=== PATIENT | female | born 1965 | race Caucasian/White ===

== ENCOUNTER → 2022-08-14 08:10 | Outpatient (BNVA) | payer OTHER, SELFPAY | PROVIDERS: PCP Physician Assistant; Visit Provider Physician Assistant Surgical ==

== ENCOUNTER → 2022-09-12 08:49 | Outpatient (BNVA) | payer OTHER, SELFPAY | PROVIDERS: PCP Physician Assistant; Visit Provider Physician Assistant Surgical ==

== ENCOUNTER 2022-09-16 09:49 | Outpatient (REF) | payer OTHER, SELFPAY ==
--- NOTE | ~2022-09-16 | XR_ITS ---
EXAMINATION: XR CHEST CLINICAL INFORMATION: Reason for Exam E66.01 - Morbid (severe) obesity due to excess calories COMPARISON: None TECHNIQUE: 2 views of the chest FINDINGS: Lines and tubes: Partially imaged anterior cervical fusion hardware. Clear lungs. No pleural effusion. No pneumothorax. Normal cardiomediastinal silhouette. XR/XR chest 2V IMPRESSION: * Clear lungs.
--- NOTE | 2022-09-16 10:04 | ECG_ITS ---
Test Reason : MORBID OBESITY Blood Pressure : / mmHG Vent. Rate : 067 BPM Atrial Rate : 067 BPM P-R Int : 160 ms QRS Dur : 084 ms QT Int : 394 ms P-R-T Axes : 019 048 039 degrees QTc Int : 416 ms Normal sinus rhythm Low voltage QRS Borderline ECG No previous ECGs available Referred By: Negin Shelton Electronically Signed By:SHANNAN ALMARAZ
[2022-09-16 10:22] LABS: MANUAL DIFF FLAG NO
[2022-09-16 10:27] LABS: Hematocrit 45.8 % (37.0-47.0); Hemoglobin 15.1 g/dl (12.0-16.0); Imm Gran Abs Auto 0.01 X10*3/uL (0.00-0.03); Imm Gran Pct Auto 0.2 % (0.0-0.4); Lymphocytes Absolute Auto 1.1 X10*3/uL (1.2-4.9); Lymphocytes Percent Auto 25.9 % (20-40); Mean Corpuscular Hemoglobin 32.3 pg (27.0-33.0); Mean Corpuscular Volume 97.9 fL (80.0-98.0); Mean Platelet Volume 10.3 fL (9.4-12.3); Monocytes Absolute Auto 0.3 X10*3/uL (0.1-1.2); Monocytes Percent Auto 7.9 % (2-11); Neutrophils Absolute Auto 2.6 x10*3/uL (2.0-8.3); Platelet Count 196 X10*3/uL (160-400); Red Blood Count 4.68 X10*6/uL (4.20-5.50); Red Cell Distribution Width 12.9 % (11.0-16.0); White Blood Count 4.1 X10*3/uL (4.8-10.8)
[2022-09-16 10:56] LABS: Estimated Average Glucose 94 mg/dL; Hemoglobin A1c % 4.9 %
[2022-09-16 11:16] LABS: Alanine Aminotransferase 50 U/L (0-31); Alkaline Phosphatase 89 U/L (39-117); Anion Gap 12 (12-20); Aspartate Amino Transferase 29 U/L (5-31); Bilirubin Total 1.1 mg/dL (0.0-1.0); Blood Urea Nitrogen 17 mg/dL (9-16); C Reactive Protein 0.56 mg/dL (< or = 0.50); Calcium 9.5 mg/dL (8.4-10.2); Carbon Dioxide 27 mmol/L (22-29); Chloride 106 mmol/L (96-108); Cholesterol 190 mg/dL; Estimated Glomerular Filt Rate > 60; Glucose Random 97 mg/dL (60-115); HDL Cholesterol 48 mg/dL; Iron 99 mcg/dL (30-160); LDL Cholesterol Calculated 121 mg/dl; Percent Iron Saturation 34 % (15-50); Potassium 4.1 mmol/L (3.3-5.1); Sodium 141 mmol/L (135-145); Total Iron Binding Capacity 291 mcg/dL (228-428); Total Protein 6.5 g/dL (6.5-8.0); Triglycerides 107 mg/dL; Unsaturated Iron Binding 192 ug/dL
[2022-09-16 11:35] LABS: Ferritin 223 ng/mL (10-250); Insulin 14 uU/mL (2-29); TSH reflex Free T4 2.24 uIU/mL (0.32-4.0)
[2022-09-16 11:45] LABS: Folate 13.4 ng/mL (> or = 4.0); Vitamin B12 631 pg/mL (200-900)
[2022-09-18 13:19] LABS: Calcium (PTHI) 9.3 mg/dL (8.6-10.4); PTHI 113 pg/mL (16-77)
[2022-09-20 04:54] LABS: Zinc 75 mcg/dL (60-130)
[2022-09-22 06:23] LABS: Vitamin B1 <6 nmol/L (8-30)
[2022-09-24 01:03] LABS: Vitamin A 41 mcg/dL (38-98)
== END 2022-09-16 09:50 | disposition home or self-care (01) ==
LOC: HO.LAB 09:49
PROVIDERS: PCP Physician Assistant; Visit Provider Physician Assistant Surgical
DX: E66.01 Morbid (severe) obesity due to excess calories (principal)
CPT/HCPCS: 36415; 71046; 80053; 80061; 82306; 82607; 82728; 82746; 83036; 83525; 83540; 83970; 84425; 84443; 84590; 84630; 85025; 86140; 93005

== ENCOUNTER 2022-10-07 09:19 | Outpatient (AMB) | payer OTHER, SELFPAY ==
[2022-10-07 09:22] VITALS: BP 134/67; PULSE 69; TEMP 36.1; O2SAT 96; BMI 43.2
--- NOTE | 2022-10-07 09:22 | MHC.OFFVISWM ---
Intake VS Expanded 10/07/22 09:22 Height 5 ft 5 in Weight 259 lb 9.6 oz BMI 43.2 BP 134/67 Blood Pressure Location Rt brachial Blood Pressure Position Sitting Pulse 69 Pulse Source Pulse Oximeter Temp 97.0 F Temperature Source Temporal Artery Scan Pulse Oximetry 96 Oxygen Delivery Method Room Air Body Fat 122.8 Body Fat Percentage 47.3 Free Fat Mass 136.6 Muscle Mass 1,298 Visceral Mass 15.0 Water Mass 97.2 BMR 1,932 Intake Visit Reasons: (OV) F/U SWL + H.Pylori Allergies acetaminophen [From Percocet] Allergy (Mild, Verified 10/07/22 10:15) NAUSEA AND VOMITING codeine Allergy (Mild, Verified 10/07/22 10:15) MIGRAINES morphine Allergy (Mild, Verified 10/07/22 10:15) Itching oxycodone [From Percocet] Allergy (Mild, Verified 10/07/22 10:15) NAUSEA AND VOMITING Penicillins Allergy (Mild, Verified 10/07/22 10:15) Hives NITRILE GLOVES Allergy (Mild, Uncoded 08/14/22 08:33) Hives Medication List - Last Reconciled 10/07/22 by MARNIE Spencer cholecalciferol (vitamin D3) 25 mcg PO DAILY diclofenac sodium 75 mg PO BID PRN fexofenadine 180 mg PO DAILY gabapentin 100 mg PO BEDTIME hydroxychloroquine 200 mg PO BID lidocaine 5% 0 patches topical omeprazole 20 mg PO DAILY ropinirole 0.5 mg PO BEDTIME solifenacin 5 mg PO Q8H thiamine HCl (vitamin B1) 100 mg PO DAILY triamcinolone acetonide 2 sprays intranasal DAILY HPI HPI Comments History of Present Illness Details The patient is a pleasant 56 year old female who returns to the clinic for pre-operative surgical weight loss management.? They were last seen in the office on 09/12/2022, recorded weight at that time was 270.2 pounds, with a BMI of 44.9.? Today's weight is 259.6 pounds and BMI is 43.2.? There has been a weight loss of 10.2 pounds since initiating the surgical weight loss program on 09/12/2022 with a total body weight loss of 3.92 %. Pre op work up completed as follows: SWL classes:? 08/04 appts: 7/25 RD appts: 10/14 Labs: low vit D/B1, high PTH H. pylori: today CXR: 09/16 clear lungs EK/20 Normal sinus rhythm; Low voltage QRS ABD U/S: 12/05 UGI: 12/05 The patient reports that her back is hurting her, often does when she starts to lose weight. Is no longer working, was laid off. Usually does not get both shakes- does not start first shakes until 11am-12pm. Current meal plan includes: [employer] premade shake (30g) from 9-11am and 12-2pm. HALF [employer] protein bar at 3pm-4pm and other half at 8pm-9pm. Dinner at 6pm- 6 forks of protein and 6 forks of salad/vegetables. Current exercise plan includes: stationary bike or videos limited due to pain, 6000 steps some days. [facility] Surgical History History of back surgery Hx of carpal tunnel repair Hx of foot surgery Hx of foot surgery Hx of hysterectomy Hx of total knee replacement Hx of unilateral oophorectomy Family History Mother No problems noted. Father Heart attack Brother No problems noted. Son No problems noted. Social History Alcohol intake: current Alcohol intake frequency: holidays/special occasions only Patient Tobacco Use Status: Never used Tobacco Physical Exam Vital Signs: Last Vital Signs Temp 97.0 F 10/07/22 09:22 Pulse 69 10/07/22 09:22 BP 134/67 10/07/22 09:22 Pulse Ox 96 10/07/22 09:22 Oxygen Delivery Method Room Air 10/07/22 09:22 BMI result Body Mass Index 43.2 Assessment & Plan Assessment & Plan (1) Morbid obesity: Code(s): E66.01 - Morbid (severe) obesity due to excess calories (2) Arthritis: Code(s): M19.90 - Unspecified osteoarthritis, unspecified site (3) GERD (gastroesophageal reflux disease): Code(s): K21.9 - Gastro-esophageal reflux disease without esophagitis Plan Pt is out of [employer] protein powder and now wants to use Atkins. She is unsure of the protein content of the powder. When she gets home will text me a photo and I will create new meal plan based on that. Next visit with Dr. Truong in 2 weeks, then followup with me 2 weeks subsequent. Patient is morbidly obese and is not considered stable at this time. I spent a total of 30 minutes reviewing/updating records, examining the patient and counseling the patient on weight management as detailed above. Coding Level of Care Code Est Pt Level 4 (12645) Diagnoses Morbid obesity E66.01 Arthritis M19.90 GERD (gastroesophageal reflux disease) K21.9
== END 2022-10-07 11:58 | disposition home or self-care (01) ==
PROVIDERS: PCP Physician Assistant; Visit Provider Physician Assistant Surgical
DX: E66.01 Morbid (severe) obesity due to excess calories (principal); Z68.41 Body mass index [BMI] 40.0-44.9, adult; M19.90 Unspecified osteoarthritis, unspecified site; K21.9 Gastro-esophageal reflux disease without esophagitis
CPT/HCPCS: 99214

== ENCOUNTER 2022-10-07 09:19 | Outpatient (REF) | payer OTHER, SELFPAY ==
[2022-10-12 12:42] LABS: H Pylori Breath Test Negative (Negative)
== END 2022-10-07 09:20 | disposition home or self-care (01) ==
LOC: HO.LNP 09:19
PROVIDERS: PCP Physician Assistant; Visit Provider Physician Assistant Surgical
DX: E66.01 Morbid (severe) obesity due to excess calories (principal); M19.90 Unspecified osteoarthritis, unspecified site; K21.9 Gastro-esophageal reflux disease without esophagitis
CPT/HCPCS: 83013; 99211

== ENCOUNTER 2022-10-14 09:30 | Outpatient (AMB) | payer OTHER, SELFPAY ==
--- NOTE | 2022-10-14 10:22 | A.OFFVIS_ITS ---
Intake Intake Visit Reasons: (OV) Initial Nutrition SWL Allergies acetaminophen [From Percocet] Allergy (Mild, Verified 10/07/22 10:15) NAUSEA AND VOMITING codeine Allergy (Mild, Verified 10/07/22 10:15) MIGRAINES morphine Allergy (Mild, Verified 10/07/22 10:15) Itching oxycodone [From Percocet] Allergy (Mild, Verified 10/07/22 10:15) NAUSEA AND VOMITING Penicillins Allergy (Mild, Verified 10/07/22 10:15) Hives NITRILE GLOVES Allergy (Mild, Uncoded 08/14/22 08:33) Hives HPI Nutrition Presentation Reason for consult elevated BMI Diet Assmnt Details Patient shares she is struggling with consistency with her nutrition plan. She shares her partner and she dine out or get takeout food , Thursday, Thursday. She feels that this is something she is not willing to change. night gets sushi, she feels that she makes a better choice than she normally would (now gets salad with imitation crab, dressing). The other night she had [place] food (3 spring rolls, fried rice, Teriyaki skewer). Likes to go to an [employer] restaurant in [place]. She reports hse sometimes skips shakes/bars . does have to work on consistency still Previous weight loss methods attempted Tried keto, but didn't give up sugar Patient shares she try to pursue bariatric surgery pre COVID at a clinic in [place]. Dietary counseling reduction Who buys your food self and spouse Who prepares/cooks your food self and spouse Meal frequency regular: breakfast, lunch and dinner Lifestyle Food frequency Grains/pasta/breads/cereal (carbs): daily and Meats/poultry/fish (protein): daily Diagnosis Nutrition problem #1 overweight/obesity As related to (etiology) #1 excess energy intake and physical inactivity As evidenced by (sign/symptom) #1 high BMI Monitoring/Goals Nutrition problem monitoring total energy intake, level of knowledge/skill, total PRO intake, total CHO intake and weight Learning/Education Readiness to learn fair Stages of change preparation Educational materials provided Yes Most Recent Diabetes Results: Cholesterol 190 mg/dL 09/16/22 HDL Cholesterol 48 mg/dL 09/16/22 Triglycerides 107 mg/dL 09/16/22 Creatinine 0.75 mg/dL (0.5-1.4) 09/16/22 Blood Urea Nitrogen 17 mg/dL (9-16) H 09/16/22 Sodium 141 mmol/L (135-145) 09/16/22 Potassium 4.1 mmol/L (3.3-5.1) 09/16/22 Chloride 106 mmol/L (96-108) 09/16/22 Carbon Dioxide 27 mmol/L (22-29) 09/16/22 Calcium 9.5 mg/dL (8.4-10.2) 09/16/22 AST 29 U/L (5-31) 09/16/22 ALT 50 U/L (0-31) H 09/16/22 Total Protein 6.5 g/dL (6.5-8.0) 09/16/22 Albumin 4.0 g/dL (3.5-5.0) 09/16/22 PFSH Surgical History History of back surgery Hx of carpal tunnel repair Hx of foot surgery Hx of foot surgery Hx of hysterectomy Hx of total knee replacement Hx of unilateral oophorectomy Family History Mother No problems noted. Father Heart attack Brother No problems noted. Son No problems noted. Social History Alcohol intake: current Alcohol intake frequency: holidays/special occasions only Patient Tobacco Use Status: Never used Tobacco Assessment & Plan Assessment & Plan (1) Morbid obesity: Code(s): E66.01 - Morbid (severe) obesity due to excess calories Patient Instructions: Discussed the habit of restaurant foods/take out etc but pt feels that this is something she doesn't want to change. We reviewed basic lifestyle recommendations for post bariatric surgery. Outlined some areas for improvement but pt notes she has already made great progress. congratulated pt on her success so far but provided goals for next appointment which included no skipping meals, making better food choices when eating out, and consistency overall. she will have a discussion with Dr. Truong about her desired timeline for surgery. pt will need another nutrition appointment Coding Level of Care Code Nutr Indiv Intake (79115) Diagnoses Morbid obesity E66.01 Time Spent (min) 30
== END 2022-10-14 11:12 | disposition home or self-care (01) ==
PROVIDERS: PCP Physician Assistant; Visit Provider Dietitian, Registered
DX: E66.01 Morbid (severe) obesity due to excess calories (principal)

== ENCOUNTER → 2022-10-14 09:30 | Outpatient (BNVA) | payer OTHER, SELFPAY | PROVIDERS: PCP Physician Assistant; Visit Provider Dietitian, Registered | DX: E66.01 Morbid (severe) obesity due to excess calories (principal); Z71.3 Dietary counseling and surveillance | CPT/HCPCS: 97802 ==

== ENCOUNTER 2022-10-21 09:45 | Outpatient (AMB) | payer OTHER, SELFPAY ==
--- NOTE | 2022-10-21 10:01 | MHC.OFFVISWM ---
Intake VS Expanded 10/21/22 10:13 Height 5 ft 5 in Weight 256 lb 12.8 oz BMI 42.7 BP 128/60 Blood Pressure Location Lt brachial Blood Pressure Position Sitting Pulse 77 Pulse Source Pulse Oximeter Temp 97.9 F Temperature Source Temporal Artery Scan Pulse Oximetry 96 Oxygen Delivery Method Room Air Body Fat 120.2 Body Fat Percentage 46.8 Free Fat Mass 136.6 Muscle Mass 129.6 Visceral Mass 15.0 Water Mass 97.2 BMR 1,925 Neck Circumference 16.5 in Waist Circumference 3 ft 10.5 in Intake Visit Reasons: (OV) F/U SWL (Negin) Intake Note: Patient here for f/u SWL. Reports no new concerns. Lab Engineer Required: No Cotton Jammer: Cotton Jammer offered & declined Accompanied by: Self / Same As Patient Allergies acetaminophen [From Percocet] Allergy (Mild, Verified 10/21/22 10:24) NAUSEA AND VOMITING codeine Allergy (Mild, Verified 10/21/22 10:24) MIGRAINES morphine Allergy (Mild, Verified 10/21/22 10:24) Itching oxycodone [From Percocet] Allergy (Mild, Verified 10/21/22 10:24) NAUSEA AND VOMITING Penicillins Allergy (Mild, Verified 10/21/22 10:24) Hives NITRILE GLOVES Allergy (Mild, Uncoded 10/21/22 10:24) Hives Medication List - Last Reconciled 10/21/22 by Frandy Truong MD cholecalciferol (vitamin D3) 25 mcg PO DAILY diclofenac sodium 75 mg PO BID PRN fexofenadine 180 mg PO DAILY gabapentin 100 mg PO BEDTIME hydroxychloroquine 200 mg PO BID lidocaine 5% 0 patches topical omeprazole 20 mg PO DAILY ropinirole 0.5 mg PO BEDTIME solifenacin 5 mg PO Q8H thiamine HCl (vitamin B1) 100 mg PO DAILY triamcinolone acetonide 2 sprays intranasal DAILY HPI HPI Comments History of Present Illness Details The patient is a 56-year-old woman with a history of back pain, left knee osteoarthritis is currently on diclofenac and hydroxychloroquine due to arthritis. She notes that her heaviest weight was 275 lb and she entered the surgical weight loss program at a weight of approximately 270 lb. She presents today at a weight of 256.8 lb/BMI 42.7 and is congratulated on her interval weight loss. She reports no dietary issues. She has tried previous bariatric surgery program and [place] but states she was forced to drop out due to insurance reasons. The patient is currently experiencing severe left knee pain and working towards a left left knee replacement, which requires her to get to 243 lb. The patient has a left knee brace in place and walks with a cane due to her knee giving out. The patient stated today preference to have her orthopedic procedure involving her left knee done 1st. She also notes that she needs diclofenac and hydroxychloroquine given her chronic pain an orthopedic issues. Pre op work up completed as follows: SWL classes:? 08/04 BH appts: 10/21 appts: 10/14 Labs: low vit D/B1, high PTH H. pylori: Neg CXR: 09/16 clear lungs EK/20?Normal sinus rhythm; Low voltage QRS ABD U/S: 12/05 UGI: 12/05 [facility] Surgical History History of back surgery Hx of carpal tunnel repair Hx of foot surgery Hx of foot surgery Hx of hysterectomy Hx of total knee replacement Hx of unilateral oophorectomy Family History Mother No problems noted. Father Heart attack Brother No problems noted. Son No problems noted. Social History Alcohol intake: current Alcohol intake frequency: holidays/special occasions only Patient Tobacco Use Status: Never used Tobacco Review of Systems Const All systems reviewed & are unremarkable except as noted in HPI and below Reports as per HPI Physical Exam Vital Signs: Last Vital Signs Temp 97.9 F 10/21/22 10:13 Pulse 77 10/21/22 10:13 BP 128/60 10/21/22 10:13 Pulse Ox 96 10/21/22 10:13 Oxygen Delivery Method Room Air 10/21/22 10:13 BMI result Body Mass Index 42.7 The patient is non-toxic & in good spirits NC/AT, PERRLA, EOMI Mood, affect & judgment all appear appropriate Sclera anicteric conjunctiva pink and moist Oropharynx is clear with no aphthous ulcers, Mallampati class 4, mucous membranes moist Neck is supple with no masses, adenopathy or bruits Thyroid is nontender and free of dominant masses Heart is regular, normal S1-S2 no rubs or murmurs Lungs are clear and equal anteriorly with no audible wheezing, rubs or dullness to percussion Abdomen is obese with no demonstrable hernias. No HSM, rebound, rigidity, guarding, masses or bruits are present. Rectal exam is deferred Skin has good turgor and is free of rashes Extremities free of cyanosis clubbing edema Results Reviewed Results Reviewed: Labs dated 09/16/2022 Hemoglobin 15.1 with normal indices and normal iron studies, with blood cell count 4.1, platelet count 196 K H.pylori negative LFTs show slight elevation of total bilirubin at 1.1, ALT elevated at 50, vitamins show low B1 in D which have been replaced Lipid panel within normal parameters BUN 17, creatinine 0.75 Hemoglobin A1c 4.9 Diagnostic imaging CXR NAD UGI pending Abd U/S: pending Assessment & Plan Assessment & Plan (1) Morbid obesity: Code(s): E66.01 - Morbid (severe) obesity due to excess calories (2) Arthritis: Code(s): M19.90 - Unspecified osteoarthritis, unspecified site (3) GERD (gastroesophageal reflux disease): Code(s): K21.9 - Gastro-esophageal reflux disease without esophagitis (4) Bursitis: Code(s): M71.9 - Bursopathy, unspecified (5) Restless leg syndrome: Code(s): G25.81 - Restless legs syndrome (6) Vitamin B1 deficiency: Code(s): E51.9 - Thiamine deficiency, unspecified (7) Vitamin D deficiency: Code(s): E55.9 - Vitamin D deficiency, unspecified Plan Using a teaching piped pocket machine operator, I reviewed surgical weight loss options including laparoscopic gastric bypass and laparoscopic sleeve gastrectomy. The option of medical weight loss was also discussed at length. The importance of healthy diet to augment surgical weight loss in the inherent risk of weight regain if maladaptive eating and sedentary behavior resume were discussed at length. In addition, the risk of DVT/PE was discussed as the patient had questions regarding a person known to her who from a DVT. Need to come off diclofenac around the time of surgery was reviewed; it discussion regarding her hydroxychloroquine will need to be had since this can affect healing in some patients. I reviewed the inherent risks of this procedure which include, but are not limited to: Bleeding that could require another operation or blood transfusion; the inherent risks of transfusion reaction infectious disease from blood transfusions; the risk of staple line leaks that could cause sepsis, multi-system organ failure and ; the risk of mesenteric or deep vein thrombosis of the lower extremities that could cause a fatal pulmonary embolism was reviewed; the risk of GERD that could require conversion to gastric bypass was discussed; the risk of recurrent hiatal hernia, especially in the setting of weight regain was reviewed. The risk of weight regain if maladaptive eating and sedentary behavior continue was discussed. The importance of proper diet and increased activity to augment surgical weight loss and the fact that no operation would result in weight loss of poor dietary decisions and sedentary behavior are resumed were discussed at length and apparently understood. The patient had the option of having a metal finisher present and declined this option. The patient will follow up with Negin Shelton in a few weeks and see me the following week. Coding Level of Care Code Est Pt Level 4 (64695) Diagnoses Morbid obesity E66.01 Arthritis M19.90 GERD (gastroesophageal reflux disease) K21.9 Bursitis M71.9 Restless leg syndrome G25.81 Vitamin B1 deficiency E51.9 Vitamin D deficiency E55.9
[2022-10-21 10:13] VITALS: BP 128/60; PULSE 77; TEMP 36.6; O2SAT 96; BMI 42.7
== END 2022-10-21 11:04 | disposition home or self-care (01) ==
PROVIDERS: PCP Physician Assistant; Visit Provider Surgery
DX: E66.01 Morbid (severe) obesity due to excess calories (principal); Z68.41 Body mass index [BMI] 40.0-44.9, adult; K21.9 Gastro-esophageal reflux disease without esophagitis; M19.90 Unspecified osteoarthritis, unspecified site; M71.9 Bursopathy, unspecified; G25.81 Restless legs syndrome; E51.9 Thiamine deficiency, unspecified; E55.9 Vitamin D deficiency, unspecified
CPT/HCPCS: 99214

== ENCOUNTER → 2022-10-21 09:45 | Outpatient (BNVA) | payer OTHER, SELFPAY | PROVIDERS: PCP Physician Assistant; Visit Provider Surgery | DX: E66.01 Morbid (severe) obesity due to excess calories (principal); M19.90 Unspecified osteoarthritis, unspecified site; K21.9 Gastro-esophageal reflux disease without esophagitis; M71.9 Bursopathy, unspecified; G25.81 Restless legs syndrome; E51.9 Thiamine deficiency, unspecified; E55.9 Vitamin D deficiency, unspecified; Z68.41 Body mass index [BMI] 40.0-44.9, adult | CPT/HCPCS: 99212 ==

== ENCOUNTER 2022-11-03 12:49 | Outpatient (AMB) | payer OTHER, SELFPAY ==
--- NOTE | 2022-11-03 13:10 | A.OFFWM_ITS ---
Intake Intake Visit Reasons: (OV) BH Intake Allergies acetaminophen [From Percocet] Allergy (Mild, Verified 10/21/22 10:24) NAUSEA AND VOMITING codeine Allergy (Mild, Verified 10/21/22 10:24) MIGRAINES morphine Allergy (Mild, Verified 10/21/22 10:24) Itching oxycodone [From Percocet] Allergy (Mild, Verified 10/21/22 10:24) NAUSEA AND VOMITING Penicillins Allergy (Mild, Verified 10/21/22 10:24) Hives NITRILE GLOVES Allergy (Mild, Uncoded 10/21/22 10:24) Hives [facility] Surgical History History of back surgery Hx of carpal tunnel repair Hx of foot surgery Hx of foot surgery Hx of hysterectomy Hx of total knee replacement Hx of unilateral oophorectomy Family History Mother No problems noted. Father Heart attack Brother No problems noted. Son No problems noted. Social History Alcohol intake: current Alcohol intake frequency: holidays/special occasions only Patient Tobacco Use Status: Never used Tobacco Behavioral Health Assessment Weight Management Therapy Therapy Notes Details Pt is looking to have weight loss surgery to help improve her health and quality of life. She reported needing a knee replacement and in order to do that needs to loose weight. Pt is currently not in therapy but was about 5-7 years ago for a few months due to personal issues in her relationship. No history of any problems with drugs or alcohol or inpatient psychiatric admissions. Presenting Concerns Referral Source provider Reason for referral weight loss surgery evaluation Precipitating Event obesity Living Situation Current Living Situation Relative's/Guardian's Robby At risk of losing current housing? No Satisfied with current living situation? Yes Comments Pt lives with her boyfriend of 13 years, several animals, roommate, her son and his girlfriend. The home is her boyfriends. Food/Weight/Diet Expectations of change weight loss and maintenance History/Relationship with food Pt eats out more than two times a week at local restaurants. She drinks 1-2 alcoholic drinks a week. She reported that her biggest struggles was portion control. History/Relationship with weight Pt stated that prior to having her son 30 years ago she was average size, after her son, she was overweight. History/Relationship with dieting 2019 [place] in [place] but then lost her job and insurance. Binge Eating Do you frequently eat large amounts of food in short periods of time, not feeling physically hungry? No Do you feel out of control when you eat a large amount of food in a short period of time? No Do you eat large amounts of food rapidly and typically alone? Yes Night Eating Do you wake up at least once during the night to eat? No If you wake up in the night, do you find that it is necessary to eat something in order to fall back asleep? No Do you have little or no appetite in the morning and feel very hungry in the evening, often overeating between dinner and when you go to bed? No Social History Family history and relationship Patient was born and raised in [place], [place] by her parents and one sibling. Both parents are . Her father at 55 from a heart attack. She denied any history of trauma or abuse. She is and has one son from her second marriage. Her when her son was 14. 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 Social support boyfriend, friend Cultural/Ethnic information Legal Involvement and History Current or historical involvement with the legal system? Pt denied any issues Education Highest grade completed associates degree Preferred learning style Auditory, Verbal, Written, Learn by doing and Visual Currently enrolled in educational program? No Interested in further educational program? 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 Employment Employment Status Unemployed Wants help to find employment? No Meaningful activities reading Financial Situation Describe current financial situation Occasional struggle Financial assistance? None Service Service? No Mental Health and Addiction Treatment Current/Past substance abuse? No Current/Past addictive behavior concerns? No Pain Screening Current pain? Yes Pain in the last few months? Yes Comments Pt is in need of knee replacement Medications Is the patient compliant with medications? Yes Does the patient have Boyce Guardian in place? Not applicable Does the patient use complimentary health approaches? No Trauma/Abuse History History of trauma? Yes Questionnaires PHQ-9 Over the last 2 weeks, how often have you been bothered by any of the following problems? 1. Little interest or pleasure in doing things: several days 2. Feeling down, depressed, or hopeless: not at all 3. Trouble falling or staying asleep, or sleeping too much: more than half the days 4. Feeling tired or having little energy: nearly every day 5. Poor appetite or overeating: several days 6. Feeling bad about yourself - or that you are a failure or have let yourself or your family down: not at all 7. Trouble concentrating on things, such as reading the newspaper or watching television: not at all 8. Moving or speaking so slowly that other people could have noticed. Or the op posite - being so fidgety or restless that you have been moving around a lot more than usual: not at all 9. Thoughts that you would be better off or of hurting yourself in some way: not at all Total score: 7 Source: Developed by Drs. Nestor Brarett, Mariaelena Best, Matt Kirk and colleagues, with an educational isela from [employer]. Binge Eating Scale Group 1 A. I don't feel self-conscious about my wt. or body size when I'm with others. B. I feel concerned about how I look to others, but it normally does not make me fell disappointed with myself C. I do get self-conscious about my appearance and wt. which makes me feel disappointed in myself. D. I feel very self-conscious about my wt. and frequently I feel intense shame and disgust for myself. I try to avoid social contacts because of my self- consciousness. Response Group 1: A Group 2 A. I don't have any difficulty eating slowly in the proper manner. B. Although I seem to gobble down foods, I don't end up feeling stuffed because of eating to much. C. At times, I tend to eat quickly and then, I feel uncomfortably full afterwards. D. I have the habit of bolting down my food, without really chewing it. When this happens I usually feel uncomfortably stuffed because I've eaten to much. Response Group 2: B Group 3 A. I feel capable to control my eating urges when I want to. B. I feel like I have failed to control my eating more than the average person. C. I feel utterly helpless when it comes to feeling in control of my eating urges. D. Because I feel so helpless about controlling my eating I have become very desperate about trying to get control. Response Group 3: B Group 4 A. I don't have the habit of eating when I'm bored. B. I sometimes eat when I'm bored, but often I'm able to get busy and get my mind off food. C. I have a regular habit of eating when I'm bored, but occasionally, I can use some other activity to get my mind off eating. D. I have a strong habit of eating when I'm bored. Nothing seems to help me breath the habit. Response Group 4: B Group 5 A. I'm usually physically hungry when I eat something. B. Occasionally, I eat something on impulse even though I really am not hungry. C. I have the regular habit of eating foods, that I might not really enjoy, to satisfy a hungry feeling even though physically, I don't need the food. D. Although I'm not physically hungry, I get a hungry feeling in my mouth that only seems to be satisfied when I eat a food, like sandwich, that fills my mouth. Sometimes, when I eat the food to satisfy my mouth hunger, I then spit the food out so I won't gain weight. Response Group 5: A Group 6 A. I don't feel any guilt or self-hate after I overeat. B. After I overeat, occasionally I feel guilt or self-hate. C. Almost all the time I experience strong guilt or self-hate after I overeat. Response Group 6: B Group 7 A. I don't lose total control of my eating when dieting even after periods when I overeat. B. Sometimes when I eat a forbidden food on a diet, I feel like I blew it and eat even more. C. Frequently, I have the habit of saying to myself, I've blown it now, why not go all the way, when I overeat on a diet. When that happens I eat more. D. I have a regular habit of starting a strict diets for myself but I break the diets by going on an eating binge. My life seems to be either a feast or famine. Response Group 7: A Group 8 A. I rarely eat so much food that I feel uncomfortably stuffed afterwards. B. Usually about once a month, I each such a quantity of food, I end up feeling very stuffed. C. I have regular periods during the month when I eat large amounts of food, either at mealtime or at snacks. D. I eat so much food that I regularly feel quite uncomfortable after eating and sometimes a bit nauseous. Response Group 8: B Group 9 A. My level of calorie intake does not go up very high or go down very low on a regular basis. B. Sometimes after I overeat, I will try to reduce my caloric intake to almost nothing to compensate for the excess calories I've eaten. C. I have a regular habit of overeating during the night. It seems that my routine is not to be hungry in the morning but overeat in the evening. D. In my adult years, I have had week-long periods where I practically starve myself. This follows periods when I overeat. It seems I live a life of either feast or famine. Response Group 9: C Group 10 A. I usually am able to stop eating when I want to. I know when enough is enough. B. Every so often, I experience a compulsion to eat which I can't seem to control. C. Frequently, I experience strong urges to eat which I seem unable to control, but at other times I can control my eating urges. D. I feel incapable of controlling urges to eat. I have a fear of not being able to stop eating voluntarily. Response Group 10: A Group 11 A. I don't have any problem stopping eating when I feel full. B. I usually can stop eating when I feel full but occasionally overeat leaving me feeling uncomfortably stuffed. C. I have a problem stopping eating once I start and usually I feel uncomfortably stuffed after I eat a meal. D. Because I have a problem not being able to stop eating when I want, I sometimes have to induce vomiting to relieve my stuffed feeling. Response Group 11: A Group 12 A. I seem to eat just as much when I'm with others, Family social gatherings as when I'm by myself. B. Sometimes, when I'm with other persons, I don't eat as much as I want to eat because I'm self-conscious about my eating. C. Frequently, I eat only a small amount of food when others are present, because I'm very embarrassed about my eating. D. I feel so ashamed about overeating that I pick times to overeat when I know no one will see me. I feel like a closet eater. Response Group 12: A Group 13 A. I eat three meals a day with only an occasional between meal snack. B. I eat 3 meals a day, but I also normally snack between meals. C. When I am snacking heavily, I get in the habit of skipping regular meals. D. There are regular periods when I seem to be continually eating, with no planned meals. Response Group 13: A Group 14 A. I don't think much about trying to control unwanted eating urges. B. At least some of the time, I feel my thoughts are pre-occupied with trying to control my eating urges. C. I feel that frequently I spend much time thinking about how much I ate or about trying not to eat anymore. D. It seems to me that most of my waking hours are pre-occupied by thoughts about eating or not eating. I feel like I'm constantly struggling not to eat. Response Group 14: B Group 15 A. I don't think about food a great deal. B. I have strong craving for food but they last only for brief periods of time. C. I have days when I can't seem to think about anything else but food. D. Most of my days seem to be pre-occupied with thoughts about food. I feel like I live to eat. Response Group 15: B Group 16 A. I usually know whether or not I'm physically hungry. I take the right portion of food to satisfy me. B. Occasionally, I feel uncertain about knowing whether or not I'm physically hungry. A these times it's hard to know how much food I should take to satisfy me. C. Even though I might know how many calories I should eat, I don't have any idea what is a normal amount of food for me. Response Group 16: A Binge Eating Score: 9 Score less than 17 Minimal Risk Score between 18-26 Moderate Risk Score between 27-46 High Risk Assessment & Plan Assessment & Plan (1) Adjustment disorder, unspecified: Code(s): F43.20 - Adjustment disorder, unspecified (2) Morbid obesity: Code(s): E66.01 - Morbid (severe) obesity due to excess calories Plan Patient struggles with eating out often other quiroz doing well in the program and denied any serious mental health symptoms. She is cleared for surgery when ready. Coding Level of Care Code Psy Diag Aravind (06702) Diagnoses Adjustment disorder, unspecified F43.20 Morbid obesity E66.01 Time Spent (min) 45
== END 2022-11-03 15:20 | disposition home or self-care (01) ==
PROVIDERS: PCP Physician Assistant; Visit Provider Counselor Mental Health
DX: F43.20 Adjustment disorder, unspecified (principal); E66.01 Morbid (severe) obesity due to excess calories; Z68.41 Body mass index [BMI] 40.0-44.9, adult
CPT/HCPCS: 90791

== ENCOUNTER → 2022-11-03 12:49 | Outpatient (BNVA) | payer OTHER, SELFPAY | PROVIDERS: PCP Physician Assistant; Visit Provider Counselor Mental Health ==

== ENCOUNTER 2022-11-05 13:52 | Outpatient (AMB) | payer OTHER, SELFPAY ==
--- NOTE | 2022-11-05 13:56 | MHC.OFFVISWM ---
Intake VS Expanded 11/05/22 14:07 Height 5 ft 5 in Weight 251 lb 12.8 oz BMI 41.9 BP 134/72 Blood Pressure Location Lt brachial Blood Pressure Position Sitting Pulse 89 Pulse Source Pulse Oximeter Temp 98 F Temperature Source Temporal Artery Scan Pulse Oximetry 98 Oxygen Delivery Method Room Air Body Fat 121.0 Body Fat Percentage 48.1 Free Fat Mass 130.8 Muscle Mass 124.2 Visceral Mass 15.0 Water Mass 93.0 BMR 1,852 Neck Circumference 16 in Waist Circumference 4 ft 2 in Intake Visit Reasons: (OV) F/U SWL (Negin) Intake Note: Patient is seen in office for follow up visit, following surgical weight loss. Recreation Director Required: No Accompanied by: Self / Same As Patient Allergies acetaminophen [From Percocet] Allergy (Mild, Verified 11/05/22 14:10) NAUSEA AND VOMITING codeine Allergy (Mild, Verified 11/05/22 14:10) MIGRAINES morphine Allergy (Mild, Verified 11/05/22 14:10) Itching oxycodone [From Percocet] Allergy (Mild, Verified 11/05/22 14:10) NAUSEA AND VOMITING Penicillins Allergy (Mild, Verified 11/05/22 14:10) Hives NITRILE GLOVES Allergy (Mild, Uncoded 11/05/22 14:10) Hives Medication List - Last Reconciled 11/05/22 by MARNIE Spencer cholecalciferol (vitamin D3) 25 mcg PO DAILY diclofenac sodium 75 mg PO BID PRN fexofenadine 180 mg PO DAILY gabapentin 100 mg PO BEDTIME hydroxychloroquine 200 mg PO BID lidocaine 5% 0 patches topical omeprazole 20 mg PO DAILY ropinirole 0.5 mg PO BEDTIME solifenacin 5 mg PO Q8H thiamine HCl (vitamin B1) 100 mg PO DAILY triamcinolone acetonide 2 sprays intranasal DAILY HPI HPI Comments History of Present Illness Details The patient is a pleasant 56 year old female who returns to the clinic for pre-operative surgical weight loss management.? They were last seen in the office on 10/21/2022, recorded weight at that time was 256.8 pounds, with a BMI of 42.7.? Today's weight is 251.8 pounds and BMI is 41.9.? There has been a weight loss of 18.4 pounds since initiating the surgical weight loss program on 09/12/2022 with a total body weight loss of 6.81 %. Pre op work up completed as follows: SWL classes:? 11/04 BH appts: cleared 11/03? ?? RD appts: 10/14, needs f/u Labs: 09/16, high BUN, tbili, ALT, CRP, PTH; low vit B1/D, WBC H. pylori: 10/07, negative CXR: 09/16/2022, clear lungs EK09/16/2022, NSR ABD U/S: scheduled 12/05 UGI: scheduled 12/05 Pt reports that she wants to have knee surgery before any weight loss surgery, due to ongoing knee pain. Current meal plan includes: 12-2pm Premier powder 2 scoops in 8oz water or 8oz unsweetened vanilla almond milk 3-5pm Atkins protein bar 6pm dinner- 10 forks protein, 10 forks salad/veg 7-9pm Premier protein water, can also have some fruit Current exercise plan includes: stationary bike or videos PFSH Surgical History History of back surgery Hx of carpal tunnel repair Hx of foot surgery Hx of foot surgery Hx of hysterectomy Hx of total knee replacement Hx of unilateral oophorectomy Family History Mother No problems noted. Father Heart attack Brother No problems noted. Son No problems noted. Social History Alcohol intake: current Alcohol intake frequency: holidays/special occasions only Patient Tobacco Use Status: Never used Tobacco Assessment & Plan Assessment & Plan (1) Morbid obesity: Code(s): E66.01 - Morbid (severe) obesity due to excess calories (2) Arthritis: Code(s): M19.90 - Unspecified osteoarthritis, unspecified site (3) GERD (gastroesophageal reflux disease): Code(s): K21.9 - Gastro-esophageal reflux disease without esophagitis Plan Pt needs RD f/u now that she has completed all classes. Will continue same meal plan. UGI/US scheduled for 12/05. Pt would like to wait until after knee surgery to proceed with any bariatric surgery, with goal of BMI>40 to proceed with knee surgery. Will follow up with Dr. Truong in 1 week, then follow up again with me in 3-4 weeks (will add to my cancellation list for next available appt in Nov). Patient is morbidly obese and is not considered stable at this time. I spent a total of 30 minutes reviewing/updating records, examining the patient and counseling the patient on weight management as detailed above. Coding Level of Care Code Est Pt Level 4 (75298) Diagnoses Morbid obesity E66.01 Arthritis M19.90 GERD (gastroesophageal reflux disease) K21.9
[2022-11-05 14:07] VITALS: BP 134/72; PULSE 89; TEMP 36.6; O2SAT 98; BMI 41.9
== END 2022-11-05 14:41 | disposition home or self-care (01) ==
PROVIDERS: PCP Physician Assistant; Visit Provider Physician Assistant Surgical
DX: E66.01 Morbid (severe) obesity due to excess calories (principal); Z68.41 Body mass index [BMI] 40.0-44.9, adult; M19.90 Unspecified osteoarthritis, unspecified site; K21.9 Gastro-esophageal reflux disease without esophagitis
CPT/HCPCS: 99214

== ENCOUNTER → 2022-11-05 13:52 | Outpatient (BNVA) | payer OTHER, SELFPAY | PROVIDERS: PCP Physician Assistant; Visit Provider Physician Assistant Surgical | DX: E66.01 Morbid (severe) obesity due to excess calories (principal); M19.90 Unspecified osteoarthritis, unspecified site; K21.9 Gastro-esophageal reflux disease without esophagitis; Z68.41 Body mass index [BMI] 40.0-44.9, adult | CPT/HCPCS: 99212 ==

== ENCOUNTER 2022-11-12 10:01 | Outpatient (AMB) | payer OTHER, SELFPAY ==
--- NOTE | 2022-11-12 10:06 | A.OFFVIS_ITS ---
Intake VS Expanded 11/12/22 10:16 Height 5 ft 5 in Weight 252 lb 6.4 oz BMI 42.0 BP 132/70 Blood Pressure Location Lt brachial Blood Pressure Position Sitting Pulse 73 Pulse Source Pulse Oximeter Temp 97.9 F Temperature Source Temporal Artery Scan Pulse Oximetry 95 Oxygen Delivery Method Room Air Body Fat 116.2 Body Fat Percentage 46.1 Free Fat Mass 136.0 Muscle Mass 129.2 Visceral Mass 15.0 Water Mass 96.8 BMR 1,912 Intake Visit Reasons: (OV) F/U SWL (Negin) Intake Note: Patient is seen in office for follow up visit, following surgical weight loss. Patient c/o: denies any changes or concerns at the time of visit Labor Contract Analyst Required: No Food Service Kitchen Supervisor: Food Service Kitchen Supervisor offered & declined Allergies acetaminophen [From Percocet] Allergy (Mild, Verified 11/12/22 10:20) NAUSEA AND VOMITING codeine Allergy (Mild, Verified 11/12/22 10:20) MIGRAINES morphine Allergy (Mild, Verified 11/12/22 10:20) Itching oxycodone [From Percocet] Allergy (Mild, Verified 11/12/22 10:20) NAUSEA AND VOMITING Penicillins Allergy (Mild, Verified 11/12/22 10:20) Hives NITRILE GLOVES Allergy (Mild, Uncoded 11/12/22 10:20) Hives HPI HPI Comments History of Present Illness Details The patient is a 56-year-old woman with a history of back pain, left knee osteoarthritis is currently on diclofenac and hydroxychloroquine due to arthritis. She notes that her heaviest weight was 275 lb and she entered the surgical weight loss program at a weight of approximately 270 lb. She presents today at a weight of 252.4 lb/BMI 42.0 and is congratulated on her interval weight loss. She reports no dietary issues with her meal plan, but notes that she went off her diet over the weekend due to a constitution party. The patient is currently experiencing severe left knee pain and working towards a left left knee replacement, which requires her to get to 243 lb. The patient has a left knee brace in place and walks with a cane due to her knee giving out. The patient stated today preference to have her orthopedic procedure involving her left knee done 1st. She also notes that she needs diclofenac and h ydroxychloroquine given her chronic pain an orthopedic issues. Current meal plan includes: 12-2pm Premier powder 2 scoops in 8oz water or 8oz unsweetened vanilla almond milk 3-5pm Atkins protein bar 6pm dinner- 10 forks protein, 10 forks salad/veg 7-9pm Premier protein water, can also have some fruit Current exercise plan includes: stationary bike or videos; Site and Be Fit was also recommended, but the pt notes she isn't exercising. Pre op work up completed as follows: SWL classes:? 11/04 BH appts: cleared 11/03? ?? RD appts: 10/14, needs f/u Labs: 09/16, high BUN, tbili, ALT, CRP, PTH; low vit B1/D, WBC H. pylori: 10/07, negative CXR: 09/16/2022, clear lungs EK09/16/2022, NSR ABD U/S: scheduled 12/05 UGI: scheduled 12/05 PFSH Surgical History History of back surgery Hx of carpal tunnel repair Hx of foot surgery Hx of foot surgery Hx of hysterectomy Hx of total knee replacement Hx of unilateral oophorectomy Family History Mother No problems noted. Father Heart attack Brother No problems noted. Son No problems noted. Social History Alcohol intake: current Alcohol intake frequency: holidays/special occasions only Patient Tobacco Use Status: Never used Tobacco Review of Systems Const All systems reviewed & are unremarkable except as noted in HPI and below Reports as per HPI Physical Exam On exam she is nontoxic and in good spirits She continues to utilize her cane She is anicteric She is in no acute respiratory distress Her abdomen is obese A left lower extremity/knee brace is in place and no ankle edema or cyanosis is appreciated in either lower extremity Results Reviewed Results Reviewed: Labs dated 09/16/2022 Hemoglobin 15.1 with normal indices and normal iron studies, with blood cell count 4.1, platelet count 196 K H.pylori negative LFTs show slight elevation of total bilirubin at 1.1, ALT elevated at 50, vitamins show low B1 in D which have been replaced Lipid panel within normal parameters BUN 17, creatinine 0.75 Hemoglobin A1c 4.9 Diagnostic imaging CXR NAD UGI pending Abd U/S: pending Assessment & Plan Assessment & Plan (1) Morbid obesity: Code(s): E66.01 - Morbid (severe) obesity due to excess calories (2) Arthritis: Code(s): M19.90 - Unspecified osteoarthritis, unspecified site (3) Vitamin B1 deficiency: Code(s): E51.9 - Thiamine deficiency, unspecified (4) Vitamin D deficiency: Code(s): E55.9 - Vitamin D deficiency, unspecified (5) Adjustment disorder, unspecified: Code(s): F43.20 - Adjustment disorder, unspecified (6) GERD (gastroesophageal reflux disease): Code(s): K21.9 - Gastro-esophageal reflux disease without esophagitis (7) Restless leg syndrome: Code(s): G25.81 - Restless legs syndrome Plan The patient requested no adjustments to her diet; the importance of increased activity and suggestion to assess the sit and be fit online or youtube videos was again reviewed with the patient. Patient remains interested in reaching her goal weight of 243 lb to proceed with orthopedic surgery. The need for her hydroxychloroquine, diclofenac to be stopped preoperatively for a week and postoperatively was again discussed. Patient will follow-up with me in 1 month. Coding Level of Care Code Est Pt Level 4 (36654) Diagnoses Morbid obesity E66.01 Arthritis M19.90 Vitamin B1 deficiency E51.9 Vitamin D deficiency E55.9 Adjustment disorder, unspecified F43.20 GERD (gastroesophageal reflux disease) K21.9 Restless leg syndrome G25.81
[2022-11-12 10:16] VITALS: BP 132/70; PULSE 73; TEMP 36.6; O2SAT 95; BMI 42.0
== END 2022-11-12 10:28 | disposition home or self-care (01) ==
PROVIDERS: PCP Physician Assistant; Visit Provider Surgery
DX: E66.01 Morbid (severe) obesity due to excess calories (principal); Z68.41 Body mass index [BMI] 40.0-44.9, adult
CPT/HCPCS: 99214

== ENCOUNTER → 2022-11-12 10:01 | Outpatient (BNVA) | payer OTHER, SELFPAY | PROVIDERS: PCP Physician Assistant; Visit Provider Surgery | DX: E66.01 Morbid (severe) obesity due to excess calories (principal); Z68.41 Body mass index [BMI] 40.0-44.9, adult; E51.9 Thiamine deficiency, unspecified; E55.9 Vitamin D deficiency, unspecified; K21.9 Gastro-esophageal reflux disease without esophagitis; M19.90 Unspecified osteoarthritis, unspecified site; G25.81 Restless legs syndrome; F43.20 Adjustment disorder, unspecified | CPT/HCPCS: 99212 ==

== ENCOUNTER 2022-12-05 07:40 | Outpatient (REF) | payer OTHER, SELFPAY ==
--- NOTE | ~2022-12-05 | US_ITS ---
EXAMINATION: US COMPLETE ABDOMEN WITH LIVER ELASTOGRAPHY CLINICAL INFORMATION: Morbid obesity. COMPARISON: None available. TECHNIQUE: Real-time imaging of the abdominal viscera. Noninvasive ultrasound liver fibrosis assessment is performed using Liane ElastPQ point quantification shear wave elastography (2D-SWE) with a C5-2 MHz transducer. Multiple elastography samples are obtained. Imaging is limited by body habitus. FINDINGS: PANCREAS: Normal. The visualized pancreatic head and body are normal in appearance. The remainder of the pancreas is obscured from visualization by the overlying bowel gas. ABDOMINAL AORTA: The proximal, middle, and distal aortic segments are normal in caliber. INFERIOR VENA CAVA: Visualized portions are normal. LIVER: The liver demonstrates normal size, contour and generally increased echogenicity. No focal lesion or intrahepatic biliary duct dilatation. The right lobe measures 14.1 cm in length. The left lobe measures 9.3 cm in length. Portal flow is towards the liver (hepatopetal). Shear wave liver elastography median stiffness is 1.44 m/s (reference: normal median stiffness is 1.3 m/s or less). IQR/median stiffness to assess sampling precision is 0.03 (reference: good quality data set is IQR/median stiffness of 0.15 or less). GALLBLADDER: Normal. The gallbladder is physiologically distended without evidence of stones, sludge, polyps, wall thickening or pericholecystic fluid. COMMON BILE DUCT: Normal in caliber measuring 0.4 cm in diameter. RIGHT KIDNEY: There is pelviectasis, without priscilla hydronephrosis. No renal calculi or focal parenchymal lesions. The kidney measures 10.3 cm in maximum dimension. LEFT KIDNEY: There are persistent lobulations. No hydronephrosis. No renal calculi or focal parenchymal lesions. The kidney measures 12.3 cm in maximum dimension. SPLEEN: Normal. The spleen measures 10.4 cm in maximum dimension. FREE FLUID: None. US/US abdomen comp w elastography IMPRESSION: 1. There is generalized increase in hepatic echotexture, consistent with fatty infiltration or hepatocellular disease. Please correlate clinically. No focal hepatic mass or intrahepatic biliary dilatation is seen. 2. Liver elastography: In the absence of other known clinical signs, measurements rule out compensated advanced chronic liver disease. If there are known clinical signs, further testing may be needed for confirmation. REFERENCE: Society of Radiologists in Ultrasound Liver Stiffness Thresholds (2020): LIVER STIFFNESS THRESHOLDS: *Liver Stiffness equal or less than 1.3 m/s: High probability of being normal. *Liver Stiffness less than 1.7 m/s: In the absence of other known clinical signs, rules out compensated advanced chronic liver disease. *Liver Stiffness 1.7-2.1 m/s: Suggestive of compensated advanced chronic liver disease but need further test for confirmation. *Liver Stiffness over 2.1 m/s: Rules in compensated advanced chronic liver disease. *Liver Stiffness over 2.4 m/s: Suggestive of clinically significant portal hypertension. QUALITY OF DATA SET: *IQR/Median value equal or less than 0.15 implies a quality data set. *IQR/Median value over 0.15 implies a poor quality data set. SIGNIFICANT CHANGE FROM PRIOR EXAM: Significant change if liver stiffness measurement is 10% or greater from prior exam. OTHER CONSIDERATIONS: The stage of liver fibrosis may be overestimated in the setting of acute hepatitis, liver inflammation, elevated liver function tests, hepatic vascular congestion, obstructive cholestasis, non-fasting state, and infiltrative diseases such as amyloidosis and lymphoma. In some patients with NAFLD, the liver stiffness thresholds for compensated advanced chronic liver disease may be lower. In causes other than viral hepatitis and NAFLD, liver stiffness thresholds are not well established.
--- NOTE | ~2022-12-05 | FL_ITS ---
EXAMINATION: XR FLUOROSCOPY UPPER GI WITH AIR CLINICAL INFORMATION: Obesity COMPARISON: None available. TECHNIQUE: Upper GI was performed using thin and thick barium and effervescent granules FINDINGS: Esophageal motility is normal. No reflux is seen. There is a small sliding hiatal hernia. The stomach and duodenum are normal. No fold thickening, mass, ulcer or stricture. FLUOROSCOPY TIME: 0.7 minutes DOSE AREA PRODUCT: 10.8 Ott per centimeter squared. Total dose 42 mgy. 23 saved fluoroscopic images. FL/FL upper GI w air IMPRESSION: Small sliding-type hiatal hernia. Otherwise unremarkable exam.
== END 2022-12-05 07:41 | disposition home or self-care (01) ==
LOC: HO.US 07:40
PROVIDERS: PCP Physician Assistant; Visit Provider Physician Assistant Surgical
DX: E66.01 Morbid (severe) obesity due to excess calories (principal)
CPT/HCPCS: 74246; 76705; 76981

== ENCOUNTER → 2022-12-05 07:41 | Outpatient (BNV) | payer OTHER, SELFPAY | PROVIDERS: PCP Physician Assistant; Visit Provider Radiology Diagnostic Radiology | DX: Z01.818 Encounter for other preprocedural examination (principal) | CPT/HCPCS: 74246 ==

== ENCOUNTER 2022-12-15 09:49 | Outpatient (AMB) | payer OTHER, SELFPAY ==
--- NOTE | 2022-12-15 09:51 | A.OFFVIS_ITS ---
Intake VS Expanded 12/15/22 09:59 Height 5 ft 5 in Weight 248 lb 6.4 oz BMI 41.3 BP 132/98 H Blood Pressure Location Rt radial Blood Pressure Position Sitting Pulse 71 Pulse Source Pulse Oximeter Temp 97.1 F Temperature Source Tympanic Pulse Oximetry 98 Oxygen Delivery Method Room Air Body Fat 117.2 Body Fat Percentage 47.2 Free Fat Mass 131.0 Muscle Mass 124.4 Visceral Mass 15.0 Water Mass 93.0 BMR 1,848 Intake Visit Reasons: (OV) F/U SWL (Negin) Allergies acetaminophen [From Percocet] Allergy (Mild, Verified 12/15/22 09:54) NAUSEA AND VOMITING codeine Allergy (Mild, Verified 12/15/22 09:54) MIGRAINES morphine Allergy (Mild, Verified 12/15/22 09:54) Itching oxycodone [From Percocet] Allergy (Mild, Verified 12/15/22 09:54) NAUSEA AND VOMITING Penicillins Allergy (Mild, Verified 12/15/22 09:54) Hives NITRILE GLOVES Allergy (Mild, Uncoded 12/15/22 09:54) Hives HPI HPI Comments History of Present Illness Details The patient is a 56-year-old woman with a history of back pain, left knee osteoarthritis is currently on diclofenac and hydroxychloroquine due to arthritis. She notes that her heaviest weight was 275 lb and she entered the surgical weight loss program at a weight of approximately 270 lb. She presents today at a weight of 248.4 lb/BMI 41.3 and is congratulated on her interval weight loss. She reports no dietary issues with her meal plan, but notes that she went off her diet over the weekend due to a constitution party. The patient is currently experiencing severe left knee pain and working towards a left left knee replacement, which requires her to get to 243 lb. The patient has a left knee brace in place and walks with a cane due to her knee giving out. The patient stated today preference to have her orthopedic procedure involving her left knee done 1st. She also notes that she needs diclofenac and hydroxychloroquine given her chronic pain an orthopedic issues. Current meal plan includes: 12-2pm Premier powder 2 scoops in 8oz wa ter or 8oz unsweetened vanilla almond milk 3-5pm Atkins protein bar 6pm dinner- 10 forks protein, 10 forks s alad/veg 7-9pm Premier protein water, can also matthews ve some fruit Current exercise plan includes: stationary bike or videos; Site and Be Fit was also recommended, but the pt notes she isn't exercising. Pre op work up completed as follows: SWL classes:? 11/04 BH appts: cleared 11/03? ?? RD appts: 10/14, needs f/u Labs: 09/16, high BUN, tbili, ALT, CRP, PTH; low vit B1/D, WBC H. pylori: 10/07, negative CXR: 09/16/2022, clear lungs EK09/16/2022, NSR ABD U/S: NAFLD, +fibrosis UGI: Small HH PFSH Surgical History Hx of foot surgery History of back surgery Hx of carpal tunnel repair Hx of total knee replacement Hx of unilateral oophorectomy Hx of hysterectomy Hx of foot surgery Family History Mother No problems noted. Father Heart attack Brother No problems noted. Son No problems noted. Social History Alcohol intake: current Alcohol intake frequency: holidays/special occasions only Patient Tobacco Use Status: Never used Tobacco Review of Systems Const All systems reviewed & are unremarkable except as noted in HPI and below Reports as per HPI Physical Exam On exam she is nontoxic and in good spirits She continues to utilize her cane She is anicteric She is in no acute respiratory distress Her abdomen is obese A left lower extremity/knee brace is in place and no ankle edema or cyanosis is appreciated in either lower extremity Results Reviewed Results Reviewed: Labs dated 09/16/2022 Hemoglobin 15.1 with normal indices and normal iron studies, with blood cell count 4.1, platelet count 196 K H.pylori negative LFTs show slight elevation of total bilirubin at 1.1, ALT elevated at 50, vitamins show low B1 in D which have been replaced Lipid panel within normal parameters BUN 17, creatinine 0.75 Hemoglobin A1c 4.9 Diagnostic imaging CXR NAD UGI small HH Abd U/S: NAFLD, +fibrosis/stiffness Assessment & Plan Assessment & Plan (1) Morbid obesity: Code(s): E66.01 - Morbid (severe) obesity due to excess calories (2) GERD (gastroesophageal reflux disease): Code(s): K21.9 - Gastro-esophageal reflux disease without esophagitis (3) Arthritis: Code(s): M19.90 - Unspecified osteoarthritis, unspecified site (4) Bursitis: Code(s): M71.9 - Bursopathy, unspecified (5) Restless leg syndrome: Code(s): G25.81 - Restless legs syndrome (6) Vitamin B1 deficiency: Code(s): E51.9 - Thiamine deficiency, unspecified (7) Vitamin D deficiency: Code(s): E55.9 - Vitamin D deficiency, unspecified (8) Adjustment disorder, unspecified: Code(s): F43.20 - Adjustment disorder, unspecified Plan Patient is not having any issues regarding her diet and is going to continue the same meal plan. Patient continues to endorse that her knee and back prevent her from doing exercises. She has a follow-up with her orthopedic surgeon since she is close to the BMI of 40 required for her left knee replacement. She is requested to stay in the program in the meantime and will see me in 1 month follow-up. Patient has findings of NAFLD and her increased risk for cirrhosis were discussed. The presence of a small hiatal hernia was also discussed. Should the patient decide to proceed with sleeve gastrectomy, will discuss in greater detail around the time of surgery. Coding Level of Care Code Est Pt Level 4 (55006) Diagnoses Morbid obesity E66.01 GERD (gastroesophageal reflux disease) K21.9 Arthritis M19.90 Bursitis M71.9 Restless leg syndrome G25.81 Vitamin B1 deficiency E51.9 Vitamin D deficiency E55.9 Adjustment disorder, unspecified F43.20
[2022-12-15 09:59] VITALS: BP 132/98; PULSE 71; TEMP 36.2; O2SAT 98; BMI 41.3
== END 2022-12-15 10:13 | disposition home or self-care (01) ==
PROVIDERS: PCP Physician Assistant; Visit Provider Surgery
DX: E66.01 Morbid (severe) obesity due to excess calories (principal); Z68.41 Body mass index [BMI] 40.0-44.9, adult; K21.9 Gastro-esophageal reflux disease without esophagitis; M19.90 Unspecified osteoarthritis, unspecified site; M71.9 Bursopathy, unspecified; E51.9 Thiamine deficiency, unspecified; G25.81 Restless legs syndrome; E55.9 Vitamin D deficiency, unspecified; F43.20 Adjustment disorder, unspecified
CPT/HCPCS: 99214

== ENCOUNTER → 2022-12-15 09:49 | Outpatient (BNVA) | payer OTHER, SELFPAY | PROVIDERS: PCP Physician Assistant; Visit Provider Surgery | DX: E66.01 Morbid (severe) obesity due to excess calories (principal); K21.9 Gastro-esophageal reflux disease without esophagitis; M19.90 Unspecified osteoarthritis, unspecified site; M71.9 Bursopathy, unspecified; G25.81 Restless legs syndrome; E51.9 Thiamine deficiency, unspecified; E55.9 Vitamin D deficiency, unspecified; F43.20 Adjustment disorder, unspecified; Z68.41 Body mass index [BMI] 40.0-44.9, adult | CPT/HCPCS: 99212 ==

== ENCOUNTER 2023-01-27 09:46 | Outpatient (AMB) | payer OTHER, SELFPAY ==
--- NOTE | 2023-01-27 10:00 | A.OFFVIS_ITS ---
Intake VS Expanded 01/27/23 10:03 BP 123/87 Blood Pressure Location Rt brachial Blood Pressure Position Sitting Pulse 79 Pulse Source Pulse Oximeter Temp 97.5 F Temperature Source Tympanic Pulse Oximetry 93 Oxygen Delivery Method Room Air Height 5 ft 5 in Weight 240 lb 3.2 oz BMI 40.0 Body Fat % 46.3 Body Fat Mass 111.2 Fat Free Mass 129.0 Visceral Fat Rating 14.0 Body Water % 38.2 Body Water Mass 91.8 Muscle Mass/Score 122.4 Basal Metabolic Rate/Score 1,812 Intake Visit Reasons: (OV) F/U SWL (Negin) Allergies acetaminophen [From Percocet] Allergy (Mild, Verified 01/27/23 10:02) NAUSEA AND VOMITING codeine Allergy (Mild, Verified 01/27/23 10:02) MIGRAINES morphine Allergy (Mild, Verified 01/27/23 10:02) Itching oxycodone [From Percocet] Allergy (Mild, Verified 01/27/23 10:02) NAUSEA AND VOMITING Penicillins Allergy (Mild, Verified 01/27/23 10:02) Hives NITRILE GLOVES Allergy (Mild, Uncoded 01/27/23 10:02) Hives HPI HPI Comments History of Present Illness Details The patient is a 56-year-old woman with a history of back pain, left knee osteoarthritis is currently on diclofenac and hydroxychloroquine due to arthritis. She notes that her heaviest weight was 275 lb and she entered the surgical weight loss program at a weight of approximately 270 lb. She returns today at a weight of 240.2 lb/BMI 40.0 and is congratulated on her interval weight loss. She reports no dietary issues with her meal plan, but notes that she went off her diet over the weekend due to a alliance party. The patient is currently experiencing severe left knee pain and working towards a left left knee replacement, which she states her orthopedic surgeons stated requires her to get to 243 lb. The patient has a left knee brace in place and walks with a cane due to her knee giving out. She stated that she is happy at this current weight but was disappointed that her orthopedic surgeon requires her to drop down to 233 for her left knee replacement. Today, she stated that she will call if she decides she wants to re-enter the bariatric program. She is tolerating the current meal plan, a acknowledges that she has cheating but stated that since she met her weight loss goal for her orthopedic surgeon, she does not need any changes at this time. The patient stated today preference to have her orthopedic procedure involving her left knee done 1st. She also notes that she needs diclofenac and hydroxychloroquine given her chronic pain an orthopedic issues. Current meal plan includes: 12-2pm Premier powder 2 scoops in 8oz wa ter or 8oz unsweetened vanilla almond milk 3-5pm Atkins protein bar 6pm dinner- 10 forks protein, 10 forks s alad/veg 7-9pm Premier protein water, can also matthews ve some fruit Current exercise plan includes: stationary bike or videos; Site and Be Fit was also recommended, but the pt notes she isn't exercising. Pre op work up completed as follows: SWL classes:? 11/04 BH appts: cleared 11/03? ?? RD appts: 10/14, needs f/u appt & advised, didn't schedule Labs: 09/16, high BUN, Tbili, ALT, CRP, PTH; low vit B1/D, WBC 4.1 H. pylori: 10/07, negative CXR: 09/16/2022, clear lungs EK09/16/2022, NSR ABD U/S: NAFLD, +fibrosis UGI: Small HH PFSH Surgical History Hx of foot surgery History of back surgery Hx of carpal tunnel repair Hx of total knee replacement Hx of unilateral oophorectomy Hx of hysterectomy Hx of foot surgery Family History Mother No problems noted. Father Heart attack Brother No problems noted. Son No problems noted. Social History Alcohol intake: current Alcohol intake frequency: holidays/special occasions only Patient Tobacco Use Status: Never used Tobacco Review of Systems Const All systems reviewed & are unremarkable except as noted in HPI and below Physical Exam On exam she is nontoxic and in good spirits She continues to utilize her cane She is anicteric She is in no acute respiratory distress Her abdomen is obese A left lower extremity/knee brace is in place and no ankle edema or cyanosis is appreciated in either lower extremity Results Reviewed Results Reviewed: Labs dated 09/16/2022 Hemoglobin 15.1 with normal indices and normal iron studies, with blood cell count 4.1, platelet count 196 K H.pylori negative LFTs show slight elevation of total bilirubin at 1.1, ALT elevated at 50, vitamins show low B1 in D which have been replaced Lipid panel within normal parameters BUN 17, creatinine 0.75 Hemoglobin A1c 4.9 Diagnostic imaging CXR NAD UGI small HH Abd U/S: NAFLD, +fibrosis/stiffness Assessment & Plan Assessment & Plan (1) Morbid obesity: Code(s): E66.01 - Morbid (severe) obesity due to excess calories (2) Arthritis: Code(s): M19.90 - Unspecified osteoarthritis, unspecified site (3) GERD (gastroesophageal reflux disease): Code(s): K21.9 - Gastro-esophageal reflux disease without esophagitis (4) Vitamin B1 deficiency: Code(s): E51.9 - Thiamine deficiency, unspecified (5) Vitamin D deficiency: Code(s): E55.9 - Vitamin D deficiency, unspecified (6) Adjustment disorder, unspecified: Code(s): F43.20 - Adjustment disorder, unspecified (7) Restless leg syndrome: Code(s): G25.81 - Restless legs syndrome Plan The patient is congratulated on her interval weight loss. She again reviewed her goal to have a knee replacement and stated that she is not sure she wishes to continue in the bariatric program and stated that she will call next year if she changes her mind. The risks of DVT related to orthopedic and bariatric surgery was discussed with the patient's. I did explain that if she re enters the program this will need to be considered regarding timing of any procedure and she voiced understanding. Will wait to hear from the patient. Coding Level of Care Code Est Pt Level 4 (21240) Diagnoses Morbid obesity E66.01 Arthritis M19.90 GERD (gastroesophageal reflux disease) K21.9 Vitamin B1 deficiency E51.9 Vitamin D deficiency E55.9 Adjustment disorder, unspecified F43.20 Restless leg syndrome G25.81
[2023-01-27 10:03] VITALS: BP 123/87; PULSE 79; TEMP 36.4; O2SAT 93; BMI 40.0
== END 2023-01-27 10:19 | disposition home or self-care (01) ==
PROVIDERS: PCP Physician Assistant; Visit Provider Surgery
DX: E66.01 Morbid (severe) obesity due to excess calories (principal); Z68.41 Body mass index [BMI] 40.0-44.9, adult; K21.9 Gastro-esophageal reflux disease without esophagitis; E51.9 Thiamine deficiency, unspecified; E55.9 Vitamin D deficiency, unspecified; F43.20 Adjustment disorder, unspecified; G25.81 Restless legs syndrome
CPT/HCPCS: 99213

== ENCOUNTER → 2023-01-27 09:46 | Outpatient (BNVA) | payer OTHER, SELFPAY | PROVIDERS: PCP Physician Assistant; Visit Provider Surgery | DX: E66.01 Morbid (severe) obesity due to excess calories (principal); M19.90 Unspecified osteoarthritis, unspecified site; K21.9 Gastro-esophageal reflux disease without esophagitis; E51.9 Thiamine deficiency, unspecified; E55.9 Vitamin D deficiency, unspecified; F43.20 Adjustment disorder, unspecified; G25.81 Restless legs syndrome; Z68.41 Body mass index [BMI] 40.0-44.9, adult | CPT/HCPCS: 99212 ==